=== PATIENT | female | born 1955 | race American Indian/Alaskan Native ===

== ENCOUNTER 2020-03-10 11:29 | Observation (INO) | payer MEDICARE, OTHER ==
--- NOTE | 2020-03-10 13:20 | Cat Scan Report ---
CT head/brain wo con INDICATION: dizziness, elevated BP. TECHNIQUE: Routine CT head without contrast. All CT scans at this location are performed using CT dos e reduction for ALARA by means of automated exposure control. COMPARISON: None. FINDINGS: BRAIN / INTRACRANIAL CONTENTS: No acute hemorrhage, mass effect, midline shift, or hydrocephalus. No appreciable acute large territorial or lacunar infarct. No chronic infarct or focal atrophy. Normal b rain volume and ventricular/sulcal size for age. ORBITS: No significant abnormality of visualized orbits. SINUSES / MASTOIDS: No significant abnormality of visualized sinuses and mastoid air cells. ADDITIONAL FINDINGS: None. IMPRESSION: 1. No acute intracranial abnormality. Signer Name: Raghu Becker MD Signed: 03/10/2020 1:15 PM Workstation Name: [id number]
[2020-03-10 14:00] LABS: Basophils % (Auto) 0.2 % (0.0-1.8); Eosinophils % (Auto) 0.4 % (0.0-4.3); Hematocrit 38.9 % (30.3-42.9); Hemoglobin 12.6 gm/dl (10.1-14.3); Lymphocytes # (Auto) 0.9 K/mm3 (1.2-5.4); Lymphocytes % (Auto) 16.2 % (13.4-35.0); Mean Corpuscular HGB Conc 32 % (30-34); Mean Corpuscular Volume 82 fl (79-97); Monocytes # (Auto) 0.4 K/mm3 (0.0-0.8); Platelet Count 234 K/mm3 (140-440); Red Blood Count 4.77 M/mm3 (3.65-5.03); Red Cell Distribution Width 15.9 % (13.2-15.2)
--- NOTE | 2020-03-10 14:24 | Event Note ---
ED Screening Note ED Screening Note: dizziness that began this morning at 10 AM states she went to the bathroom at 9 AM and had no dizziness states feel like room is spinning states she feels generalized weakness states her dizziness is improving worse with head movements no ANGEL vision feels blurry, but hx of cataract surgery so chronically has blurred vision states she also has nausea and one episode of vomiting no unilateral weakness no speech disturbance PMHx HTN, asthma no allergies to meds no facial asymmetry, 5/5 muscle strength in the BUE/BLE, equal nondestructive tester strength, normal finger to nose, normal heel to shultz, sensation intact throughout discussed case with Dr. Garcia, ER attending does not recommend activating code s troke at this time This initial assessment/diagnostic orders/clinical plan/treatment(s) is/are subject to change based on patients health status, clinical progression and re- assessment by fellow clinical providers in the ED. Further treatment and workup at subsequent clinical providers discretion. Patient/guardian urged not to elope from the ED as their condition may be serious if not clinically assessed and managed. Initial orders include: labs, EKG, CT head
[2020-03-10 14:29] LABS: Alanine Aminotransferase 19 units/L (7-56); Albumin 3.7 g/dL (3.9-5); Blood Urea Nitrogen 12 mg/dL (7-17); Calcium 9.4 mg/dL (8.4-10.2); Hemolysis Index 1
[2020-03-10 14:33] LABS: BUN/Creatinine Ratio 20
--- NOTE | 2020-03-10 15:06 | Emergency Department Report ---
HPI - General Chief Complaint: Dizziness Time Seen by Provider: 03/10/20 14:13 - HPI HPI: This is a 64-year-old -[place] female who presents to the emergency department from home with complaint of dizziness, generalized weakness and blurry vision that started around 10 AM this morning. It is also associated with some nausea and vomiting. The patient denies any headache, fever, chest pain, shortness of breath. She has not taken anything for her symptoms prior to presentation. She has a past medical history of hypertension. Her primary care physician is Dr. Dawson Mcfadden. The patient denies any slurred speech, numbness or paresthesias. No recent travel or sick contacts at home. 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.,3 C-sections - Social History Smoking Status: Never Smoker Substance Use Type: None - Medications Home Medications: Home Medications Medication Instructions Recorded Confirmed Last Taken Type Azithromycin [Zithromax Z-SARAH] 250 mg PO DAILY #6 tablet 02/03/14 Unknown Rx Promethazine /Codeine 5 ml PO Q6H PRN #120 ml 02/03/14 Unknown Rx [Phenergan/Codeine 6.25-10 mg/5 ml] guaiFENesin/DEXTROMETHORPHAN 1 each PO BID #20 tab 02/03/14 Unknown Rx [Mucinex Dm ER 1,200-60 mg Tab] predniSONE [Deltasone] 40 mg PO QDAY #10 tab 02/03/14 Unknown Rx traMADoL [Ultram] 50 mg PO Q6HR PRN #14 tablet 11/21/15 Unknown Rx ED Review of Systems ROS: Stated complaint: DIZZY Other details as noted in HPI Comment: All other systems reviewed and negative Constitutional: weakness. denies: chills, fever Eyes: vision change. denies: eye pain ENT: denies: ear pain, throat pain Respiratory: denies: cough, shortness of breath Cardiovascular: denies: chest pain, palpitations Gastrointestinal: denies: abdominal pain, vomiting Genitourinary: denies: dysuria, discharge Musculoskeletal: denies: back pain, arthralgia Skin: denies: rash, lesions Neurological: weakness. denies: headache, numbness Physical Exam - Physical Exam Vital Signs: Vital Signs 03/10/20 11:33 Temperature 97.9 F Pulse Rate 55 L Respiratory 18 Rate Blood Pressure 187/87 O2 Sat by Pulse 97 Oximetry Physical Exam: GENERAL: The patient is well-developed well-nourished. HENT: Normocephalic. Atraumatic. Patient has moist mucous membranes. EYES: Patient has anisocoria with the right pupil 2 times larger than the left with some slight decreased response to light. There is significant horizontal nystagmus. The patient has some mild rotary nystagmus when looking up/down. NECK: Supple. Trachea is midline. CHEST/LUNGS: Clear to auscultation. There is no respiratory distress noted. HEART/CARDIOVASCULAR: Regular. There is no tachycardia. There is no murmur. ABDOMEN: Abdomen is soft, nontender. Patient has normal bowel sounds. Obese habitus. SKIN: Skin is warm and dry. NEURO: The patient is awake, alert, and oriented. The patient is cooperative. No motor or sensory deficits. No slurred speech. No facial asymmetry. MUSCULOSKELETAL: There is no tenderness or deformity. There is no limitation range of motion. ED Course Vital Signs 03/10/20 11:33 Temperature 97.9 F Pulse Rate 55 L Respiratory 18 Rate Blood Pressure 187/87 O2 Sat by Pulse 97 Oximetry - Reevaluation(s) Reevaluation #1: 03/10/20 17:50 Lab Results 03/10/20 03/10/20 03/10/20 Range/Units 13:10 13:10 15:20 WBC 5.9 (4.5-11.0) K/mm3 RBC 4.77 (3.65-5.03) M/mm3 Hgb 12.6 (10.1-14.3) gm/dl Hct 38.9 (30.3-42.9) % MCV 82 (79-97) fl MCH 26 L (28-32) pg MCHC 32 (30-34) % RDW 15.9 H (13.2-15.2) % Plt Count 234 (140-440) K/mm3 Lymph % (Auto) 16.2 (13.4-35.0) % Millard % (Auto) 6.0 (0.0-7.3) % Eos % (Auto) 0.4 (0.0-4.3) % Baso % (Auto) 0.2 (0.0-1.8) % Lymph # (Auto) 0.9 L (1.2-5.4) K/mm3 Millard # (Auto) 0.4 (0.0-0.8) K/mm3 Eos # (Auto) 0.0 (0.0-0.4) K/mm3 Baso # (Auto) 0.0 (0.0-0.1) K/mm3 Seg Neutrophils % 77.2 H (40.0-70.0) % Seg Neutrophils # 4.5 (1.8-7.7) K/mm3 Sodium 141 (137-145) mmol/L Potassium 4.0 (3.6-5.0) mmol/L Chloride 105.9 (98-107) mmol/L Carbon Dioxide 27 (22-30) mmol/L Anion Gap 12 mmol/L BUN 12 (7-17) mg/dL Creatinine 0.6 (0.6-1.2) mg/dL Estimated GFR > 60 ml/min BUN/Creatinine Ratio 20 % Glucose 128 H (65-100) mg/dL Calcium 9.4 (8.4-10.2) mg/dL Magnesium 2.10 (1.7-2.3) mg/dL Total Bilirubin 0.20 (0.1-1.2) mg/dL AST 20 (5-40) units/L ALT 19 (7-56) units/L Alkaline Phosphatase 97 (35-129) units/L Total Creatine Kinase 34 (30-135) units/L Troponin T (0.00-0.029) ng/mL Total Protein 7.6 (6.3-8.2) g/dL Albumin 3.7 L (3.9-5) g/dL Albumin/Globulin Ratio 0.9 % TSH 1.190 (0.270-4.200) mlU/mL 12/16/20 Range/Units 15:20 WBC (4.5-11.0) K/mm3 RBC (3.65-5.03) M/mm3 Hgb (10.1-14.3) gm/dl Hct (30.3-42.9) % MCV (79-97) fl MCH (28-32) pg MCHC (30-34) % RDW (13.2-15.2) % Plt Count (140-440) K/mm3 Lymph % (Auto) (13.4-35.0) % Millard % (Auto) (0.0-7.3) % Eos % (Auto) (0.0-4.3) % Baso % (Auto) (0.0-1.8) % Lymph # (Auto) (1.2-5.4) K/mm3 Millard # (Auto) (0.0-0.8) K/mm3 Eos # (Auto) (0.0-0.4) K/mm3 Baso # (Auto) (0.0-0.1) K/mm3 Seg Neutrophils % (40.0-70.0) % Seg Neutrophils # (1.8-7.7) K/mm3 Sodium (137-145) mmol/L Potassium (3.6-5.0) mmol/L Chloride (98-107) mmol/L Carbon Dioxide (22-30) mmol/L Anion Gap mmol/L BUN (7-17) mg/dL Creatinine (0.6-1.2) mg/dL Estimated GFR ml/min BUN/Creatinine Ratio % Glucose (65-100) mg/dL Calcium (8.4-10.2) mg/dL Magnesium (1.7-2.3) mg/dL Total Bilirubin (0.1-1.2) mg/dL AST (5-40) units/L ALT (7-56) units/L Alkaline Phosphatase (35-129) units/L Total Creatine Kinase (30-135) units/L Troponin T < 0.010 (0.00-0.029) ng/mL Total Protein (6.3-8.2) g/dL Albumin (3.9-5) g/dL Albumin/Globulin Ratio % TSH (0.270-4.200) mlU/mL ED Medical Decision Making - Lab Data Result diagrams: 03/10/20 13:10 03/10/20 13:10 - Radiology Data Radiology results: report reviewed CT head/brain wo con INDICATION: dizziness, elevated BP. TECHNIQUE: Routine CT head without contrast. All CT scans at this location are performed using CT dose reduction for ALARA by means of automated exposure control. COMPARISON: None. FINDINGS: BRAIN / INTRACRANIAL CONTENTS: No acute hemorrhage, mass effect, m idline shift, or hydrocephalus. No appreciable acute large territorial or lacunar infarct. No chronic infarct or focal atrophy. Normal brain volume and ventricular/sulcal size for age. ORBITS: No significant abnormality of visualized orbits. SINUSES / MASTOIDS: No significant abnormality of visualized sinuses and mastoid air cells. ADDITIONAL FINDINGS: None. IMPRESSION: 1. No acute intracranial abnormality. CTA HEAD AND NECK WITH CONTRAST HISTORY: Stroke, acute vertigo COMPARISON: Head CT done earlier on 03/10/2020 TECHNIQUE: All CT scans at this location are performed using CT dose reduction for ALARA by means of automated exposure control.. 3-D/MIP reformats postprocessed. Percentage stenosis is determined by direct quantitative measurements of diseased internal carotid artery diameter compared with normal distal internal carotid artery reference segments or by criteria similar to NASCET where applicable. CONTRAST: 100 ml of Omnipaque 350 FINDINGS: CTA HEAD: Intracranial vertebral arteries: No significant abnormality. Basilar artery: No significant abnormality. Posterior cerebral arteries: No significant abnormality. Intracranial internal carotid arteries: There is mild atherosclerotic calcification in both carotid siphons without significant s tenosis. Anterior cerebral arteries: No significant abnormality. Middle cerebral arteries: No significant abnormality. Dural venous sinuses:Not optimally opacified. No significant abnormality. CTA NECK: Aortic arch: No significant abnormality. Cervical vertebral arteries: No significant abnormality. Common carotid arteries: No significant abnormality. Cervical internal carotid arteries: No significant abnormality. Additional findings: None. IMPRESSION: 1. No significant stenosis, large vessel occlusion, or aneurysm identified throughout the cervical or intracranial arteries. - Medical Decision Making This patient presents to the emergency department with a complaint of some blurry vision, dizziness/lightheadedness and generalized weakness that started about 10 AM this morning. Patient had a CT scan of the head without contrast through triage that did not show any acute bleed or large territorial infarction. By the time this patient was triaged and was presented to me, she was outside the window for any TPA. During my examination the patient has significant horizontal nystagmus, some mild rotary nystagmus, and the complaint of decreased and blurry vision. After my examination, I contacted telemetry neurology for a consult. Patient was seen by Dr. Mac, who got a NIH stroke scale of 2 on the patient and felt there was concern for possible posterior circulation infarction. She ordered CT angiography of the head and neck. This was completed but did not show any sign of any acute occlusion, thrombus, or any other acute processes. The recommendation is for the patient receive a full dose aspirin and to be admitted for inpatient neurology consult and further stroke work-up. Patient's labs have been mostly unremarkable. She does present with some hypertension and was given a dose of Catapres. Afebrile. Patient was accepted for admission by the hospitalist, Dr. Trejo. Critical Care Time: Yes Critical care time in (mins) excluding proc time.: 35 Critical care attestation.: If time is entered above; I have spent that time in minutes in the direct care of this critically ill patient, excluding procedure time. Critical care time was spent on this patient in doing her initial evaluation, multiple reevaluations, ordering and interpretation of labs and imaging, discussion with the telemedicine neurologist and hospitalist services, multiple discussions with the patient. Critical Care Time: 35 minutes ED Disposition Clinical Impression: Stroke (cerebrum) Qualifiers: CVA mechanism: unspecified Qualified Code(s): I63.9 - Cerebral infarction, unspecified Hypertension Qualifiers: Hypertension type: essential hypertension Qualified Code(s): I10 - Essential (primary) hypertension Disposition: -09 OP ADMIT IP TO THIS HOSP Is pt being admited?: Yes Condition: Serious Time of Disposition: 17:00
[2020-03-10] MEDS ORDERED: ONDANSETRON 4 MG/2 ML INJ IV ONE (15:07)
[2020-03-10] MEDS ORDERED: cloNIDine 0.1 MG TAB PO ONE (15:09)
--- NOTE | 2020-03-10 16:01 | Emergency Department Report ---
ED Neuro Deficit HPI - General Chief Complaint: Dizziness Stated Complaint: DIZZY Time Seen by Provider: 03/10/20 14:13 Source: patient Mode of arrival: Ambulatory Limitations: No Limitations - History of Present Illness Initial Comments: [facility] Tele[facility]urology Consult Services Stat Consult Date of Service: 03/10/2020 15:25:20 Impression: I63.9 - Cerebrovascular accident (CVA), unspecified mechanism (HCC) I63.0 - Cerebral infarction due to thrombosis of precerebral arteries Comments/Sign-Out: the patient has a limitation of her right vision but she says this is chronic and not new and she also has vertigo and some extraocular motility abnormality. 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 she will need inpatient neurology consultation stroke workup.with start her on aspirin full strength. Allow permissive hypertension per non-TPA stroke protocol. 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 Recommendations: Initiate Aspirin 325 MG Daily Imaging Studies: MRI Head MRA Head Without Contrast Carotid Dopplers Echocardiogram - Transthoracic Echocardiogram Therapies: Physical Therapy, Occupational Therapy, Speech Therapy Assessment When Applicable Disposition: Neurology Follow Up Recommended Sign Out: Discussed with Emergency Department Provider Chief Complaint: blurry vision History of Present Illness: Patient is a 64 year old Female. the patient is a very [id number] woman with a history of hypertension and sinus issues woke up today at 9 AM and felt okay she then went back to bed at 10 AM and woke up at 11 very dizzy which was a sense of motion. She denies any other new weakness numbness or tingling. No history of stroke that she is aware of. She does not take any routine blood thinners. She did have some nausea and vomiting 2 earlier but no headache or chest pain. She had she came to the emergency department with a complaint of blurry vision and dizziness. her blood pressure is significantly elevated in the 180s systolic range. Past Medical History: Hypertension There is NO history of Diabetes Mellitus There is NO history of Atrial Fibrillation There is NO history of Coronary Artery Disease There is NO history of Stroke Anticoagulant use: No Antiplatelet use: No Examination: BP(187/87), Pulse(53), Blood Glucose(128) 1A: Level of Consciousness - Alert; keenly responsive + 0 1B: Ask Month and Age - Both Questions Right + 0 1C: Blink Eyes & Squeeze Hands - Performs Both Tasks + 0 2: Test Horizontal Extraocular Movements - Partial Gaze Palsy: Can Be Overcome + 1 3: Test Visual [place] - Partial Hemianopia + 1 4: Test Facial Palsy (Use Grimace if Obtunded) - Normal symmetry + 0 5A: Test Left Arm Motor Drift - No Drift for 10 Seconds + 0 5B: Test Right Arm Motor Drift - No Drift for 10 Seconds + 0 6A: Test Left Leg Motor Drift - No Drift for 5 Seconds + 0 6B: Test Right Leg Motor Drift - No Drift for 5 Seconds + 0 7: Test Limb Ataxia (FNF/Heel-[place]) - No Ataxia + 0 8: Test Sensation - Normal; No sensory loss + 0 9: Test Language/Aphasia - Normal; No aphasia + 0 10: Test Dysarthria - Normal + 0 11: Test Extinction/Inattention - No abnormality + 0 NIHSS Score: 2 Patient/Family was informed the Neurology Consult would happen via Tele[facility] consult by way of interactive audio and video telecommunications and consented to receiving care in this manner. Due to the immediate potential for life-threatening deterioration due to underlying acute neurologic illness, I spent 35 minutes providing critical care. This time includes time for face to face visit via telemedicine, review of medical records, imaging studies and discussion of findings with providers, the patient and/or family. Dr Margie Mac [facility] Case [id number] - Related Data Home Medications: Previous Rx's Medication Instructions Recorded Last Taken Type Azithromycin [Zithromax Z-SARAH] 250 mg PO DAILY #6 tablet 02/03/14 Unknown Rx Promethazine /Codeine 5 ml PO Q6H PRN #120 ml 02/03/14 Unknown Rx [Phenergan/Codeine 6.25-10 mg/5 ml] guaiFENesin/DEXTROMETHORPHAN 1 each PO BID #20 tab 02/03/14 Unknown Rx [Mucinex Dm ER 1,200-60 mg Tab] predniSONE [Deltasone] 40 mg PO QDAY #10 tab 02/03/14 Unknown Rx traMADoL [Ultram] 50 mg PO Q6HR PRN #14 tablet 11/21/15 Unknown Rx Allergies/Adverse Reactions: Allergies Allergy/AdvReac Type Severity Reaction Status Date / Time No Known Allergies Allergy Verified 02/03/14 13:34 ED Review of Systems ROS: Stated complaint: DIZZY Other details as noted in HPI Constitutional: weakness. denies: chills, fever Eyes: vision change. denies: eye pain ENT: denies: ear pain, throat pain Respiratory: denies: cough, shortness of breath Cardiovascular: denies: chest pain, palpitations Gastrointestinal: denies: abdominal pain, vomiting Genitourinary: denies: dysuria, discharge Musculoskeletal: denies: back pain, arthralgia Skin: denies: rash, lesions Neurological: weakness. 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.,3 C-sections - Social History Smoking Status: Never Smoker Substance Use Type: None - Medications Home Medications: Home Medications Medication Instructions Recorded Confirmed Last Taken Type Azithromycin [Zithromax Z-SARAH] 250 mg PO DAILY #6 tablet 02/03/14 Unknown Rx Promethazine /Codeine 5 ml PO Q6H PRN #120 ml 02/03/14 Unknown Rx [Phenergan/Codeine 6.25-10 mg/5 ml] guaiFENesin/DEXTROMETHORPHAN 1 each PO BID #20 tab 02/03/14 Unknown Rx [Mucinex Dm ER 1,200-60 mg Tab] predniSONE [Deltasone] 40 mg PO QDAY #10 tab 02/03/14 Unknown Rx traMADoL [Ultram] 50 mg PO Q6HR PRN #14 tablet 11/21/15 Unknown Rx ED Neuro Physical Exam - General Limitations: No Limitations Suspected Stroke: Yes - NIHSS Assessment Interval: Baseline 1a. Level of Consciousness: alert/keenly responsive 1b. LOC Questions: answers both correctly 1c. LOC Commands: performs tasks correctly 2. Best Gaze: partial gaze palsy 3. Visual: complete hemianopia 4. Facial Palsy: normal symmetrical movement 5b. Motor Arm Right: no drift 5a. Motor Arm Left: no drift 6a. Motor Leg Left: no drift 6b. Motor Leg Right: no drift 7. Limb Ataxia: absent 8. Sensory: normal 9. Best Language: no aphasia 10. Dysarthria: normal 11. Extinction/Inattention: no abnormality (will) Total Score: 3 Stroke Severity: Minor Stroke ED Course Vital Signs 03/10/20 03/10/20 11:33 15:26 Temperature 97.9 F Pulse Rate 55 L 53 L Respiratory 18 Rate Blood Pressure 187/87 185/75 O2 Sat by Pulse 97 Oximetry - Lab Data Result diagrams: 03/10/20 13:10 03/10/20 13:10 Lab Results 03/10/20 03/10/20 Range/Units 13:10 13:10 WBC 5.9 (4.5-11.0) K/mm3 RBC 4.77 (3.65-5.03) M/mm3 Hgb 12.6 (10.1-14.3) gm/dl Hct 38.9 (30.3-42.9) % MCV 82 (79-97) fl MCH 26 L (28-32) pg MCHC 32 (30-34) % RDW 15.9 H (13.2-15.2) % Plt Count 234 (140-440) K/mm3 Lymph % (Auto) 16.2 (13.4-35.0) % [place] % (Auto) 6.0 (0.0-7.3) % Eos % (Auto) 0.4 (0.0-4.3) % Baso % (Auto) 0.2 (0.0-1.8) % Lymph # (Auto) 0.9 L (1.2-5.4) K/mm3 [place] # (Auto) 0.4 (0.0-0.8) K/mm3 Eos # (Auto) 0.0 (0.0-0.4) K/mm3 Baso # (Auto) 0.0 (0.0-0.1) K/mm3 Seg Neutrophils % 77.2 H (40.0-70.0) % Seg Neutrophils # 4.5 (1.8-7.7) K/mm3 Sodium 141 (137-145) mmol/L Potassium 4.0 (3.6-5.0) mmol/L Chloride 105.9 (98-107) mmol/L Carbon Dioxide 27 (22-30) mmol/L Anion Gap 12 mmol/L BUN 12 (7-17) mg/dL Creatinine 0.6 (0.6-1.2) mg/dL Estimated GFR > 60 ml/min BUN/Creatinine Ratio 20 % Glucose 128 H (65-100) mg/dL Calcium 9.4 (8.4-10.2) mg/dL Magnesium 2.10 (1.7-2.3) mg/dL Total Bilirubin 0.20 (0.1-1.2) mg/dL AST 20 (5-40) units/L ALT 19 (7-56) units/L Alkaline Phosphatase 97 (35-129) units/L Total Creatine Kinase 34 (30-135) units/L Total Protein 7.6 (6.3-8.2) g/dL Albumin 3.7 L (3.9-5) g/dL Albumin/Globulin Ratio 0.9 % Critical care attestation.: If time is entered above; I have spent that time in minutes in the direct care of this critically ill patient, excluding procedure time. ED Disposition Clinical Impression: Stroke (cerebrum) Qualifiers: CVA mechanism: unspecified Qualified Code(s): I63.9 - Cerebral infarction, unspecified Disposition: 09 OP ADMIT IP TO THIS HOSP Is pt being admited?: Yes Does the pt Need Aspirin: Yes Condition: Stable Referrals: SHILA COELHO MD [Primary Care Provider] - 3-5 Days
--- NOTE | 2020-03-10 16:55 | Cat Scan Report ---
CTA HEAD AND NECK WITH CONTRAST HISTORY: Stroke, acute vertigo COMPARISON: Head CT done earlier on 03/10/2020 TECHNIQUE: All CT scans at this location are performed using CT dose reduction for ALARA by means of automated exposure control.. 3-D/MIP reformats postprocessed. Percentage stenosis is determined by d irect quantitative measurements of diseased internal carotid artery diameter compared with normal dis bhanu internal carotid artery reference segments or by criteria similar to NASCET where applicable. CONTRAST: 100 ml of Omnipaque 350 FINDINGS: CTA HEAD: Intracranial vertebral arteries: No significant abnormality. Basilar artery: No significant abnormality. Posterior cerebral arteries: No significant abnormality. Intracranial internal carotid arteries: There is mild atherosclerotic calcification in both carotid s iphons without significant stenosis. Anterior cerebral arteries: No significant abnormality. Middle cerebral arteries: No significant abnormality. Dural venous sinuses:Not optimally opacified. No significant abnormality. CTA NECK: Aortic arch: No significant abnormality. Cervical vertebral arteries: No significant abnormality. Common carotid arteries: No significant abnormality. Cervical internal carotid arteries: No significant abnormality. Additional findings: None. IMPRESSION: 1. No significant stenosis, large vessel occlusion, or aneurysm identified throughout the cervical or intracranial arteries. Signer Name: Raghu Bceker MD Signed: 03/10/2020 4:51 PM Workstation Name: [id number]
[2020-03-10] MEDS ORDERED: ASPIRIN 81 MG TAB CHEW PO ONE (16:59)
[2020-03-10 18:04] LABS: Bacteria,Urine 1+ /HPF (Negative); Bilirubin,Urine NEG (Negative); Blood,Urine NEG (Negative); Color,Urine Yellow (Yellow); Mucus,Urine FEW /HPF; Urobilinogen,Urine < 2.0 mg/dL (<2.0)
[2020-03-11] MEDS ORDERED: traMADol 50 MG TAB PO PRN (00:27)
[2020-03-11] MEDS ORDERED: HYDROmorphone 1 MG/1 ML INJ IV PRN (00:32)
[2020-03-11] MEDS ORDERED: METOCLOPRAMIDE 10 MG/2 ML INJ IV PRN (00:32)
[2020-03-11] MEDS ORDERED: ONDANSETRON 4 MG/2 ML INJ IV PRN (00:32)
[2020-03-11] MEDS ORDERED: oxyCODONE /ACETAMINOPHEN 5-325MG TAB PO PRN (00:32)
--- NOTE | 2020-03-11 00:40 | History and Physical Report ---
History of Present Illness Date of examination: 03/10/20 Date of admission: 03/10/20 17:00 Chief complaint: Dizziness blurred vision since a.m. History of present illness: 64-year-old female with history of hypertension comes in for dizziness generalized weakness and blurry vision that started around 10 AM this morning. Also associated with nausea and vomiting. Patient denies any headache fever chest pain shortness of breath. Patient denies any slurred speech or numbness or paresthesias. No fever. No recent exposure to coronavirus. No history of stroke that she is aware of. She does not take any routine blood thinners. She did have some nausea and vomiting 2 earlier but no headache or chest pain. She had she came to the emergency department with a complaint of blurry vision and dizziness. her blood pressure is significantly elevated in the 180s systolic range. 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.,3 C-sections - Social History Smoking Status: Never Smoker Substance Use Type: None - Medications Home Medications: Home Medications Medication Instructions Recorded Confirmed Last Taken Type Azithromycin [Zithromax Z-SARAH] 250 mg PO DAILY #6 tablet 02/03/14 Unknown Rx Promethazine /Codeine 5 ml PO Q6H PRN #120 ml 02/03/14 Unknown Rx [Phenergan/Codeine 6.25-10 mg/5 ml] guaiFENesin/DEXTROMETHORPHAN 1 each PO BID #20 tab 02/03/14 Unknown Rx [Mucinex Dm ER 1,200-60 mg Tab] predniSONE [Deltasone] 40 mg PO QDAY #10 tab 02/03/14 Unknown Rx traMADoL [Ultram] 50 mg PO Q6HR PRN #14 tablet 11/21/15 Unknown Rx Review of Systems ROS: Stated complaint: DIZZY Other details as noted in HPI Comment: All other systems reviewed and negative Constitutional: weakness. denies: chills, fever Eyes: vision change. denies: eye pain ENT: denies: ear pain, throat pain Respiratory: denies: cough, shortness of breath Cardiovascular: denies: chest pain, palpitations Gastrointestinal: denies: abdominal pain, vomiting Genitourinary: denies: dysuria, discharge Musculoskeletal: denies: back pain, arthralgia Skin: denies: rash, lesions Neurological: weakness. denies: headache, numbness Medications and Allergies Allergies Allergy/AdvReac Type Severity Reaction Status Date / Time No Known Allergies Allergy Verified 02/03/14 13:34 Home Medications Medication Instructions Recorded Confirmed Last Taken Type Azithromycin [Zithromax Z-SARAH] 250 mg PO DAILY #6 tablet 02/03/14 Unknown Rx Promethazine /Codeine 5 ml PO Q6H PRN #120 ml 02/03/14 Unknown Rx [Phenergan/Codeine 6.25-10 mg/5 ml] guaiFENesin/DEXTROMETHORPHAN 1 each PO BID #20 tab 02/03/14 Unknown Rx [Mucinex Dm ER 1,200-60 mg Tab] predniSONE [Deltasone] 40 mg PO QDAY #10 tab 02/03/14 Unknown Rx traMADoL [Ultram] 50 mg PO Q6HR PRN #14 tablet 11/21/15 Unknown Rx Exam - Constitutional Vitals: Temp Pulse Resp BP Pulse Ox 97.9 F 78 16 192/97 96 03/11/20 00:19 03/11/20 00:19 03/11/20 00:19 03/11/20 00:19 03/11/20 00:19 General appearance: Present: no acute distress, well-nourished - EENT Eyes: Present: PERRL ENT: hearing intact, clear oral mucosa - Neck Neck: Present: supple, normal ROM - Respiratory Respiratory effort: normal Respiratory: bilateral: CTA - Cardiovascular Heart Sounds: Present: S1 & S2. Absent: rub, click - Extremities Extremities: pulses symmetrical, No edema Peripheral Pulses: within normal limits - Abdominal General gastrointestinal: Present: soft, non-tender, non-distended, normal bowel sounds Female genitourinary: Present: normal - Integumentary Integumentary: Present: clear, warm, dry - Musculoskeletal Musculoskeletal: gait normal, strength equal bilaterally - Psychiatric Psychiatric: appropriate mood/affect, intact judgment & insight - Neurologic Neurologic: CNII-XII intact, moves all extremities HEART Score - HEART Score Troponin: Troponin T < 0.010 ng/mL (0.00-0.029) 03/10/20 15:20 Results - Labs CBC & Chem 7: 03/10/20 13:10 03/10/20 13:10 Labs: Laboratory Last Values WBC 5.9 K/mm3 (4.5-11.0) 03/10/20 13:10 RBC 4.77 M/mm3 (3.65-5.03) 03/10/20 13:10 Hgb 12.6 gm/dl (10.1-14.3) 03/10/20 13:10 Hct 38.9 % (30.3-42.9) 03/10/20 13:10 MCV 82 fl (79-97) 03/10/20 13:10 MCH 26 pg (28-32) L 03/10/20 13:10 MCHC 32 % (30-34) 03/10/20 13:10 RDW 15.9 % (13.2-15.2) H 03/10/20 13:10 Plt Count 234 K/mm3 (140-440) 03/10/20 13:10 Lymph % (Auto) 16.2 % (13.4-35.0) 03/10/20 13:10 [place] % (Auto) 6.0 % (0.0-7.3) 03/10/20 13:10 Eos % (Auto) 0.4 % (0.0-4.3) 03/10/20 13:10 Baso % (Auto) 0.2 % (0.0-1.8) 03/10/20 13:10 Lymph # (Auto) 0.9 K/mm3 (1.2-5.4) L 03/10/20 13:10 [place] # (Auto) 0.4 K/mm3 (0.0-0.8) 03/10/20 13:10 Eos # (Auto) 0.0 K/mm3 (0.0-0.4) 03/10/20 13:10 Baso # (Auto) 0.0 K/mm3 (0.0-0.1) 03/10/20 13:10 Seg Neutrophils % 77.2 % (40.0-70.0) H 03/10/20 13:10 Seg Neutrophils # 4.5 K/mm3 (1.8-7.7) 03/10/20 13:10 Sodium 141 mmol/L (137-145) 03/10/20 13:10 Potassium 4.0 mmol/L (3.6-5.0) 03/10/20 13:10 Chloride 105.9 mmol/L (98-107) 03/10/20 13:10 Carbon Dioxide 27 mmol/L (22-30) 03/10/20 13:10 Anion Gap 12 mmol/L 03/10/20 13:10 BUN 12 mg/dL (7-17) 03/10/20 13:10 Creatinine 0.6 mg/dL (0.6-1.2) 03/10/20 13:10 Estimated GFR > 60 ml/min 03/10/20 13:10 BUN/Creatinine Ratio 20 % 03/10/20 13:10 Glucose 128 mg/dL (65-100) H 03/10/20 13:10 Calcium 9.4 mg/dL (8.4-10.2) 03/10/20 13:10 Magnesium 2.10 mg/dL (1.7-2.3) 03/10/20 13:10 Total Bilirubin 0.20 mg/dL (0.1-1.2) 03/10/20 13:10 AST 20 units/L (5-40) 03/10/20 13:10 ALT 19 units/L (7-56) 03/10/20 13:10 Alkaline Phosphatase 97 units/L (35-129) 03/10/20 13:10 Total Creatine Kinase 34 units/L (30-135) 03/10/20 13:10 Troponin T < 0.010 ng/mL (0.00-0.029) 03/10/20 15:20 Total Protein 7.6 g/dL (6.3-8.2) 03/10/20 13:10 Albumin 3.7 g/dL (3.9-5) L 03/10/20 13:10 Albumin/Globulin Ratio 0.9 % 03/10/20 13:10 TSH 1.190 mlU/mL (0.270-4.200) 03/10/20 15:20 Urine Color Yellow (Yellow) 03/10/20 Unknown Urine Turbidity Clear (Clear) 03/10/20 Unknown Urine pH 6.0 (5.0-7.0) 03/10/20 Unknown Ur Specific [place] 1.035 (1.003-1.030) H 03/10/20 Unknown Urine Protein 30 mg/dl mg/dL (Negative) 03/10/20 Unknown Urine Glucose (UA) Neg mg/dL (Negative) 03/10/20 Unknown Urine Ketones Neg mg/dL (Negative) 03/10/20 Unknown Urine Blood Neg (Negative) 03/10/20 Unknown Urine Nitrite Neg (Negative) 03/10/20 Unknown Urine Bilirubin Neg (Negative) 03/10/20 Unknown Urine Urobilinogen < 2.0 mg/dL (<2.0) 03/10/20 Unknown Ur Leukocyte Esterase Neg (Negative) 03/10/20 Unknown Urine WBC (Auto) 1.0 /HPF (0.0-6.0) 03/10/20 Unknown Urine RBC (Auto) 2.0 /HPF (0.0-6.0) 03/10/20 Unknown U Epithel Cells (Auto) 1.0 /HPF (0-13.0) 03/10/20 Unknown Urine Bacteria (Auto) 1+ /HPF (Negative) 03/10/20 Unknown Urine Mucus Few /HPF 03/10/20 Unknown Jones/IV: Voiding Method Toilet IV Catheter Type [Left INT / Saline Lock Antecubital] Assessment and Plan Advance Directives: Yes (FC) VTE prophylaxis?: Chemical Plan of care discussed with patient/family: Yes - Patient Problems (1) Acute CVA (cerebrovascular accident) Current Visit: Yes Status: Acute Plan to address problem: Complete CVA work-up MRI carotid duplex scan and echocardiogram requested MRA if necessary Plan pertelemetry neurology the patient has a limitation of her right vision but she says this is chronic and not new and she also has vertigo and some extraocular motility abnormality. 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 she will need inpatient neurology consultation stroke workup.with start her on aspirin full strength. Allow permissive hypertension per non-TPA stroke protocol. lower suspicion for large vessel occlusion given her low NIH, however we'll go ahead and get stat CT angiogram of the head and neck since she does have a homonymous field cut.which echo fasting lipid panel and hemoglobin A1c (2) Hypertension Current Visit: Yes Status: Chronic Qualifiers: Hypertension type: essential hypertension Qualified Code(s): I10 - Essential (primary) hypertension Plan to address problem: Continue antihypertensive (3) DVT prophylaxis Current Visit: Yes Status: Acute Plan to address problem: On heparin and GI prophylaxis
[2020-03-11] MEDS: ASPIRIN 325 MG TAB PO SCH (09:37)
[2020-03-11] MEDS: predniSONE 20 MG TAB PO SCH (09:37)
[2020-03-11] MEDS: HEPARIN 5,000 UNIT/1 ML VIAL SUB-Q SCH ×2 (09:37→23:03)
[2020-03-11] MEDS: SODIUM CHLORIDE 0.9% 1000 ML 1,000 ML IV SCH (09:37)
[2020-03-11] MEDS: FAMOTIDINE 20 MG TAB PO SCH ×2 (09:37→23:03)
--- NOTE | 2020-03-11 13:37 | History and Physical Report ---
History of Present Illness Date of admission: 03/10/20 17:00 Medications and Allergies Allergies Allergy/AdvReac Type Severity Reaction Status Date / Time No Known Allergies Allergy Verified 02/03/14 13:34 Home Medications Medication Instructions Recorded Confirmed Last Taken Type Metoprolol [Lopressor TAB] 100 mg PO BID 03/11/20 03/11/20 Unknown History Active Meds: Active Medications Acetaminophen (Acetaminophen 325 Mg Tab) 650 mg PO Q4H PRN PRN Reason: Pain MILD(1-3)/Fever >100.5/ANGEL Aspirin (Aspirin 325 Mg Tab) 325 mg PO QDAY [facility] Last Admin: 03/11/20 09:37 Dose: 325 mg Documented by: Atorvastatin Calcium (Atorvastatin 40 Mg Tab) 40 mg PO QHS [facility] Famotidine (Famotidine 20 Mg Tab) 20 mg PO BID [facility] Last Admin: 03/11/20 09:37 Dose: 20 mg Documented by: Heparin Sodium (Porcine) (Heparin 5,000 Unit/1 Ml Vial) 5,000 unit SUB-Q Q12HR [facility] Last Admin: 03/11/20 09:37 Dose: 5,000 unit Documented by: Hydromorphone HCl (Hydromorphone 1 Mg/1 Ml Inj) 0.5 mg IV Q3H PRN PRN Reason: Pain , Severe (7-10) Sodium Chloride (Nacl 0.9% 1000 Ml) 1,000 mls @ 75 mls/hr IV DIRECT [facility] Last Admin: 03/11/20 09:37 Dose: 75 mls/hr Documented by: Metoclopramide HCl (Metoclopramide 10 Mg/2 Ml Inj) 10 mg IV Q6H PRN PRN Reason: Nausea And Vomiting Ondansetron HCl (Ondansetron 4 Mg/2 Ml Inj) 4 mg IV Q8H PRN PRN Reason: Nausea And Vomiting Oxycodone/Acetaminophen (Oxycodone /Acetaminophen 5-325mg Tab) 1 tab PO Q6H PRN PRN Reason: Pain, Moderate (4-6) Prednisone (Prednisone 20 Mg Tab) 40 mg PO QDAY [facility] Last Admin: 03/11/20 09:37 Dose: 40 mg Documented by: Sodium Chloride (Sodium Chloride 0.9% 10 Ml Flush Syringe) 10 ml IV BID [facility] Last Admin: 03/11/20 09:37 Dose: 10 ml Documented by: Sodium Chloride (Sodium Chloride 0.9% 10 Ml Flush Syringe) 10 ml IV PRN PRN PRN Reason: LINE FLUSH Sodium Chloride (Sodium Chloride 0.9% 10 Ml Flush Syringe) 10 ml IV PRN PRN PRN Reason: LINE FLUSH Tramadol HCl (Tramadol 50 Mg Tab) 50 mg PO Q6H PRN PRN Reason: PAIN (1-4) Exam - Constitutional Vitals: Temp Pulse Resp BP Pulse Ox 97.9 F 85 18 161/70 97 03/11/20 07:51 03/11/20 07:51 03/11/20 07:51 03/11/20 07:51 03/11/20 07:51 HEART Score - HEART Score Troponin: Troponin T < 0.010 ng/mL (0.00-0.029) 03/10/20 15:20 Results - Labs CBC & Chem 7: 03/10/20 13:10 03/10/20 13:10 Labs: Abnormal lab results 03/10/20 03/10/20 03/10/20 Range/Units 13:10 13:10 Unknown MCH 26 L (28-32) pg RDW 15.9 H (13.2-15.2) % Lymph # (Auto) 0.9 L (1.2-5.4) K/mm3 Seg Neutrophils % 77.2 H (40.0-70.0) % Glucose 128 H (65-100) mg/dL Albumin 3.7 L (3.9-5) g/dL Ur Specific [place] 1.035 H (1.003-1.030)
--- NOTE | 2020-03-11 13:37 | Progress Note ---
Assessment and Plan Assessment and plan: 64-year-old female with history of hypertension comes in for dizziness generalized weakness and blurry vision that started around 10 AM this morning. Also associated with nausea and vomiting. Patient denies any headache fever chest pain shortness of breath. Patient denies any slurred speech or numbness or paresthesias. No fever. No recent exposure to coronavirus. No history of stroke that she is aware of. She does not take any routine blood thinners. She did have some nausea and vomiting 2 earlier but no headache or chest pain. She had she came to the emergency department with a complaint of blurry vision and dizziness. her blood pressure is significantly elevated in the 180s systolic range. In the ER, stroke code was called and patient was seen by neurologist who suggested an MRI of the brain. Patient's CT head was negative for any acute stroke. CTA head and neck also showed no significant stenosis. --Acute CVA (cerebrovascular accident) Current Visit: Yes Status: Acute Plan to address problem: MRI brain pending Echocardiogram with bubble study Neurology consulted --Hypertension Current Visit: Yes Status: Chronic Qualifiers: Hypertension type: essential hypertension Qualified Code(s): I10 - Essential (primary) hypertension Plan to address problem: Continue antihypertensives --DVT prophylaxis Current Visit: Yes Status: Acute Plan to address problem: On heparin and GI prophylaxis History Interval history: She has no complaints today Plan for MRI and echocardiogram Has slight dizziness Hospitalist Physical - Physical exam Narrative exam: VITAL SIGNS: Reviewed. GENERAL: Awake HEAD: No signs of head trauma. EYES: Pupils are equal. Extraocular motions intact. MOUTH: Oropharynx is normal. NECK: No adenopathy, no JVD. CHEST: Chest with diminished breath sounds bilaterally. No wheezes, rales, or rhonchi. CARDIAC: normal S1 and S2, without murmurs, gallops, or rubs. ABDOMEN: Soft, non tender and non distended. No rebound or guarding, and no masses palpated. Bowel Sounds normal. MUSCULOSKELETAL: No edema NEUROLOGIC EXAM: Alert and oriented x3. No focal neurologic deficits SKIN: No obvious lesions - Constitutional Vitals: Temp Pulse Resp BP Pulse Ox 97.9 F 85 18 161/70 97 03/11/20 07:51 03/11/20 07:51 03/11/20 07:51 03/11/20 07:51 03/11/20 07:51 HEART Score - HEART Score Troponin: Troponin T < 0.010 ng/mL (0.00-0.029) 03/10/20 15:20 Results - Labs CBC & Chem 7: 03/10/20 13:10 03/10/20 13:10 Labs: Laboratory Last Values WBC 5.9 K/mm3 (4.5-11.0) 03/10/20 13:10 RBC 4.77 M/mm3 (3.65-5.03) 03/10/20 13:10 Hgb 12.6 gm/dl (10.1-14.3) 03/10/20 13:10 Hct 38.9 % (30.3-42.9) 03/10/20 13:10 MCV 82 fl (79-97) 03/10/20 13:10 MCH 26 pg (28-32) L 03/10/20 13:10 MCHC 32 % (30-34) 03/10/20 13:10 RDW 15.9 % (13.2-15.2) H 03/10/20 13:10 Plt Count 234 K/mm3 (140-440) 03/10/20 13:10 Lymph % (Auto) 16.2 % (13.4-35.0) 03/10/20 13:10 [place] % (Auto) 6.0 % (0.0-7.3) 03/10/20 13:10 Eos % (Auto) 0.4 % (0.0-4.3) 03/10/20 13:10 Baso % (Auto) 0.2 % (0.0-1.8) 03/10/20 13:10 Lymph # (Auto) 0.9 K/mm3 (1.2-5.4) L 03/10/20 13:10 [place] # (Auto) 0.4 K/mm3 (0.0-0.8) 03/10/20 13:10 Eos # (Auto) 0.0 K/mm3 (0.0-0.4) 03/10/20 13:10 Baso # (Auto) 0.0 K/mm3 (0.0-0.1) 03/10/20 13:10 Seg Neutrophils % 77.2 % (40.0-70.0) H 03/10/20 13:10 Seg Neutrophils # 4.5 K/mm3 (1.8-7.7) 03/10/20 13:10 Sodium 141 mmol/L (137-145) 03/10/20 13:10 Potassium 4.0 mmol/L (3.6-5.0) 03/10/20 13:10 Chloride 105.9 mmol/L (98-107) 03/10/20 13:10 Carbon Dioxide 27 mmol/L (22-30) 03/10/20 13:10 Anion Gap 12 mmol/L 03/10/20 13:10 BUN 12 mg/dL (7-17) 03/10/20 13:10 Creatinine 0.6 mg/dL (0.6-1.2) 03/10/20 13:10 Estimated GFR > 60 ml/min 03/10/20 13:10 BUN/Creatinine Ratio 20 % 03/10/20 13:10 Glucose 128 mg/dL (65-100) H 03/10/20 13:10 Hemoglobin A1c 5.4 % (4-6) 03/11/20 Unknown Calcium 9.4 mg/dL (8.4-10.2) 03/10/20 13:10 Magnesium 2.10 mg/dL (1.7-2.3) 03/10/20 13:10 Total Bilirubin 0.20 mg/dL (0.1-1.2) 03/10/20 13:10 AST 20 units/L (5-40) 03/10/20 13:10 ALT 19 units/L (7-56) 03/10/20 13:10 Alkaline Phosphatase 97 units/L (35-129) 03/10/20 13:10 Total Creatine Kinase 34 units/L (30-135) 03/10/20 13:10 Troponin T < 0.010 ng/mL (0.00-0.029) 03/10/20 15:20 Total Protein 7.6 g/dL (6.3-8.2) 03/10/20 13:10 Albumin 3.7 g/dL (3.9-5) L 03/10/20 13:10 Albumin/Globulin Ratio 0.9 % 03/10/20 13:10 TSH 1.190 mlU/mL (0.270-4.200) 03/10/20 15:20 Urine Color Yellow (Yellow) 03/10/20 Unknown Urine Turbidity Clear (Clear) 03/10/20 Unknown Urine pH 6.0 (5.0-7.0) 03/10/20 Unknown Ur Specific [place] 1.035 (1.003-1.030) H 03/10/20 Unknown Urine Protein 30 mg/dl mg/dL (Negative) 03/10/20 Unknown Urine Glucose (UA) Neg mg/dL (Negative) 03/10/20 Unknown Urine Ketones Neg mg/dL (Negative) 03/10/20 Unknown Urine Blood Neg (Negative) 03/10/20 Unknown Urine Nitrite Neg (Negative) 03/10/20 Unknown Urine Bilirubin Neg (Negative) 03/10/20 Unknown Urine Urobilinogen < 2.0 mg/dL (<2.0) 03/10/20 Unknown Ur Leukocyte Esterase Neg (Negative) 03/10/20 Unknown Urine WBC (Auto) 1.0 /HPF (0.0-6.0) 03/10/20 Unknown Urine RBC (Auto) 2.0 /HPF (0.0-6.0) 03/10/20 Unknown U Epithel Cells (Auto) 1.0 /HPF (0-13.0) 03/10/20 Unknown Urine Bacteria (Auto) 1+ /HPF (Negative) 03/10/20 Unknown Urine Mucus Few /HPF 03/10/20 Unknown Jones/IV: Voiding Method Toilet IV Catheter Type [Left INT / Saline Lock Antecubital] Active Medications - Current Medications Current Medications: Generic Name Dose Route Start Last Admin Trade Name Freq PRN Reason Stop Dose Admin Acetaminophen 650 mg 03/11/20 00:32 Acetaminophen 325 Mg Tab PO Q4H PRN Pain MILD(1-3)/Fever >100.5/ANGEL Aspirin 325 mg 03/11/20 10:00 03/11/20 09:37 Aspirin 325 Mg Tab PO 325 mg QDAY TANNER Administration Atorvastatin Calcium 40 mg 03/11/20 22:00 Atorvastatin 40 Mg Tab PO QHS TANNER Famotidine 20 mg 03/11/20 10:00 03/11/20 09:37 Famotidine 20 Mg Tab PO 20 mg BID TANNER Administration Heparin Sodium (Porcine) 5,000 unit 03/11/20 10:00 03/11/20 09:37 Heparin 5,000 Unit/1 Ml Vial SUB-Q 5,000 unit Q12HR TANNER Administration Hydromorphone HCl 0.5 mg 03/11/20 00:32 Hydromorphone 1 Mg/1 Ml Inj IV Q3H PRN Pain , Severe (7-10) Sodium Chloride 1,000 mls @ 75 mls/hr 03/11/20 00:45 03/11/20 09:37 Nacl 0.9% 1000 Ml IV 75 mls/hr DIRECT TANNER Administration Metoclopramide HCl 10 mg 03/11/20 00:32 Metoclopramide 10 Mg/2 Ml Inj IV Q6H PRN Nausea And Vomiting Ondansetron HCl 4 mg 03/11/20 00:32 Ondansetron 4 Mg/2 Ml Inj IV Q8H PRN Nausea And Vomiting Oxycodone/Acetaminophen 1 tab 03/11/20 00:32 Oxycodone /Acetaminophen 5-325mg Tab PO Q6H PRN Pain, Moderate (4-6) Prednisone 40 mg 03/11/20 10:00 03/11/20 09:37 Prednisone 20 Mg Tab PO 40 mg QDAY TANNER Administration Sodium Chloride 10 ml 03/11/20 10:00 03/11/20 09:37 Sodium Chloride 0.9% 10 Ml Flush Syringe IV 10 ml BID TANNER Administration Sodium Chloride 10 ml 03/11/20 00:32 Sodium Chloride 0.9% 10 Ml Flush Syringe IV PRN PRN LINE FLUSH Sodium Chloride 10 ml 03/11/20 00:36 Sodium Chloride 0.9% 10 Ml Flush Syringe IV PRN PRN LINE FLUSH Tramadol HCl 50 mg 03/11/20 00:27 Tramadol 50 Mg Tab PO Q6H PRN PAIN (1-4)
--- NOTE | 2020-03-11 16:01 | Consultation ---
History of Present Illness Consult date: 03/11/20 Reason for Consult: dizziness, blurred vision, nausea and vomiting1 day History of present illness: This is a comprehensive neurological consultation on Mr. Jackelin Neil who is a very pleasant 64 years old woman presented with the symptoms of room spinning dizziness when she woke up this morning. She also had blurred vision, nausea and vomiting. She felt generalized weakness although denied any focal weakness. She had the CT scan of the brain done which was unremarkable. CT angiogram of head and neck are unremarkable. When she arrived her blood pressure was 192/97 mmHg. Presently she still feels blurred vision and room spinning dizziness up to 50%. She denied any focal weakness although. She just had an MRI of the brain done however the results are still pending. The images of MRI are not uploaded yet. Past History Past Medical History: hypertension Past Surgical History: No surgical history Social history: no significant social history Medications and Allergies Allergies Allergy/AdvReac Type Severity Reaction Status Date / Time No Known Allergies Allergy Verified 02/03/14 13:34 Home Medications Medication Instructions Recorded Confirmed Last Taken Type Metoprolol [Lopressor TAB] 100 mg PO BID 03/11/20 03/11/20 Unknown History Active Meds: Active Medications Acetaminophen (Acetaminophen 325 Mg Tab) 650 mg PO Q4H PRN PRN Reason: Pain MILD(1-3)/Fever >100.5/ANGEL Aspirin (Aspirin 325 Mg Tab) 325 mg PO QDAY [facility] Last Admin: 03/11/20 09:37 Dose: 325 mg Documented by: Atorvastatin Calcium (Atorvastatin 40 Mg Tab) 40 mg PO QHS [facility] Famotidine (Famotidine 20 Mg Tab) 20 mg PO BID [facility] Last Admin: 03/11/20 09:37 Dose: 20 mg Documented by: Heparin Sodium (Porcine) (Heparin 5,000 Unit/1 Ml Vial) 5,000 unit SUB-Q Q12HR [facility] Last Admin: 03/11/20 09:37 Dose: 5,000 unit Documented by: Hydromorphone HCl (Hydromorphone 1 Mg/1 Ml Inj) 0.5 mg IV Q3H PRN PRN Reason: Pain , Severe (7-10) Sodium Chloride (Nacl 0.9% 1000 Ml) 1,000 mls @ 75 mls/hr IV DIRECT [facility] Last Admin: 03/11/20 09:37 Dose: 75 mls/hr Documented by: Metoclopramide HCl (Metoclopramide 10 Mg/2 Ml Inj) 10 mg IV Q6H PRN PRN Reason: Nausea And Vomiting Ondansetron HCl (Ondansetron 4 Mg/2 Ml Inj) 4 mg IV Q8H PRN PRN Reason: Nausea And Vomiting Oxycodone/Acetaminophen (Oxycodone /Acetaminophen 5-325mg Tab) 1 tab PO Q6H PRN PRN Reason: Pain, Moderate (4-6) Prednisone (Prednisone 20 Mg Tab) 40 mg PO QDAY [facility] Last Admin: 03/11/20 09:37 Dose: 40 mg Documented by: Sodium Chloride (Sodium Chloride 0.9% 10 Ml Flush Syringe) 10 ml IV BID [facility] Last Admin: 03/11/20 09:37 Dose: 10 ml Documented by: Sodium Chloride (Sodium Chloride 0.9% 10 Ml Flush Syringe) 10 ml IV PRN PRN PRN Reason: LINE FLUSH Sodium Chloride (Sodium Chloride 0.9% 10 Ml Flush Syringe) 10 ml IV PRN PRN PRN Reason: LINE FLUSH Tramadol HCl (Tramadol 50 Mg Tab) 50 mg PO Q6H PRN PRN Reason: PAIN (1-4) Review of Systems All systems: negative (room spinning dizziness,and right eye blurred vision.) Physical Examination - Vital Signs Vital Signs: Vital Signs Temp Pulse Resp BP Pulse Ox 97.9 F 55 L 18 187/87 97 03/10/20 11:33 03/10/20 11:33 03/10/20 11:33 03/10/20 11:33 03/10/20 11:33 - Physical Exam Narrative exam: Comprehensive Neurological Examinations: Mental status: alert. Fund of knowledge-normal. Affect-appropriate. Recent memory-normal. Remote memory-normal. Attention span-normal. Cognitive function-normal. Thought content/perception-normal Speech-normal Cranial nerves: II Optic: Visual nmuyza-hsbiyqmdo-qcyhhd. Visual field-normal. III Oculomotor: Bilateral-normal IV Trochlear: Bilateral-normal V Trigeminal: Bilateral-normal. Abducens: Bilateral-normal VII Facial: Bilateral-normal VIII Acoustic: koshwocxi-drjghka-juytdj( tested by finger rub) IX Glossopharyngeal/ X Vagpz-btffh-nghfnr XI Accessory-normal shoulder shrug XII Uacyjygyyck-eunxipoto-seryot Eye movements: Tvzv-vjwcrgsiv-taexmt Nystagmus: right beating nystagmus Motor: Bulk and contour: Normal Tone: Normal Strength: Head and neck-normal Upper extremities: Right-no drift Left-no drift Lower extremities: Right-no drift Left-no drift DTRs: Deferred Plantar reflexes( Babinski)-bilateral-plantar flexion Sensory: Light touch/quasasmk-dcdzlf-phurbaxi Pain/qlvpumsqzjg-ayjoqb-houxzjks Coordination: No impairment Ftpp-wb-Kxke, no impairment of qylwpr-ry-thcf or no impairment of rapid alternating movements. Gait/Station: not tested due to safety of the patient - Constitutional General appearance: comfortable - EENT EENT: Present: ATNC, PERRL, hearing intact, vision intact - Respiratory Respiratory: Present: chest non-tender, lungs clear, normal breath sounds - Cardiovascular Cardiovascular: Present: regular rate Extremities: Present: no peripheral edema bilatateraly, no clubbing, cyanosis - Gastrointestinal Gastrointestinal: Present: normoactive bowel sounds, soft, non-tender - Integumentary Integumentary: Present: normal - Level of Consciousness 1a. Level of Consciousness: alert/keenly responsive - LOC Questions 1b. LOC Questions: answers both correctly - LOC Command 1c. LOC Commands: performs tasks correctly - Best Gaze 2. Best Gaze: normal - Visual 3. Visual: no visual loss - Facial Palsy 4. Facial Palsy: normal symmetrical movement - Motor Arm 5a. Motor Arm Left: no drift 5b. Motor Arm Right: no drift - Motor Leg 6a. Motor Leg Left: no drift 6b. Motor Leg Right: no drift - Limb Ataxia 7. Limb Ataxia: absent - Sensory 8. Sensory: normal - Best Language 9. Best Language: no aphasia - Dysarthria 10. Dysarthria: normal - Extinction and Inattention 11. Extinction/Inattention: no abnormality - Scoring Total Score: 0 Stroke Severity: No Stroke Symptoms Results - Laboratory Findings CBC and BMP: 03/10/20 13:10 03/10/20 13:10 Abnormal Lab Findings: Abnormal Labs 03/10/20 03/10/20 03/10/20 13:10 13:10 Unknown MCH 26 L RDW 15.9 H Lymph # (Auto) 0.9 L Seg Neutrophils % 77.2 H Glucose 128 H Albumin 3.7 L Ur Specific [place] 1.035 H - Diagnostic Findings Additional findings: MRI of the brain is still pending with the result. Assessment and Plan - Patient Problems (1) Acute peripheral vestibulopathy Current Visit: Yes Status: Acute Plan to address problem: Plan: 1) Although patient has classic room spinning dizziness and this could be from peripheral vestibulopathy however intracranial pathology like posterior fossa acute stroke needs to be ruled out. If her MRI of the brain is negative then consider prescribing her meclizine 6.25 mg 3 times a day for 3 weeks, twice a day for 2 weeks, once a day for 1 week and then stop it. (2) Stroke (cerebrum) Current Visit: Yes Status: Acute Qualifiers: CVA mechanism: thrombosis Precerebral and cerebral artery: cerebellar artery Laterality of affected vessel: unspecified Qualified Code(s): I63.349 - Cerebral infarction due to thrombosis of unspecified cerebellar artery Plan to address problem: Plan: 1) MRI of brain test result is still pending. If negative then consider this condition as acute peripheral vestibulopathy. The treatment for this condition is stated above. 2) If the MRI of the brain is positive for acute stroke then she needs aspirin, cholesterol lowering drug, and vascular risk reduction medications for hypertension and education for secondary prevention. I discussed at length with the patient regarding his condition and possible treatment options. I have answered multiple questions posed by the patient to her best satisfactions. Patient agreed with the plan. Thank you very much for allowing us in the care of your patient. Please call us if you have any questions. Yvette Sim MD Tele-neurologist [phone]
--- NOTE | 2020-03-11 18:03 | Magnetic Resonance Report ---
MR brain wo con INDICATION / CLINICAL INFORMATION: 64 years Female; stroke. TECHNIQUE: Multiplanar, multisequence MR images of the brain were obtained. COMPARISON: CT-03/10/2020 FINDINGS: BRAIN / INTRACRANIAL CONTENTS: No acute hemorrhage, mass effect, midline shift, hydrocephalus, or acu te, large territorial infarct. No chronic infarct or atrophy. Minimal, nonspecific white matter disea se identified. CRANIOCERVICAL JUNCTION: No significant abnormality. VASCULAR FLOW-VOIDS: No significant abnormality. ORBITS: No significant abnormality of visualized orbits. SINUSES / MASTOIDS: No significant abnormality in the visualized paranasal sinuses or mastoid air agatha ls. ADDITIONAL FINDINGS: None. IMPRESSION: 1. No focal mass, hemorrhage, hydrocephalus, or acute ischemia. Signer Name: Sean Piña MD, III Signed: 03/11/2020 5:59 PM Workstation Name: [email or web address]
--- NOTE | 2020-03-11 18:10 | Vascular Lab Report ---
DUPLEX DOPPLER ULTRASOUND CAROTID, BILATERAL INDICATION / CLINICAL INFORMATION: stroke. COMPARISON: CTA neck from 03/10/2020 FINDINGS: RIGHT CAROTID: - PLAQUE ESTIMATE (%): None. - CCA velocity: 87.9 cm/sec. - ICA peak systolic velocity: 92.6 cm/sec. - ICA/CCA PSV Ratio: 1.05 Right Vertebral Artery: Antegrade flow. LEFT CAROTID: - PLAQUE ESTIMATE: None. - CCA velocity: 75.2 cm/sec. - ICA peak systolic velocity: 95.8 cm/sec. - ICA/CCA PSV Ratio: 1.27 Left Vertebral Artery: Antegrade flow. IMPRESSION: 1. Right Internal Carotid Artery: Normal. No stenosis. 2. Left Internal Carotid Artery: Normal. No stenosis. Velocity criteria are extrapolated from diameter data as defined by the Society of Radiologists in Ul trasound Consensus Conference, Radiology 2003; 229;340-346. NO STENOSIS (NORMAL) * Plaque = none; ICA PSV < 125 cm/sec; ICA/CCA PSV Ratio < 2.0 <50% STENOSIS * Plaque < 50%; ICA PSV < 125 cm/sec; ICA/CCA PSV Ratio < 2.0 50-69% STENOSIS * Plaque > 50%; ICA PSV = 125-230 cm/sec; ICA/CCA PSV Ratio = 2.0-4.0 >70% BUT <100% STENOSIS * Plaque > 50%; ICA PSV > 230 cm/sec; ICA/CCA PSV Ratio > 4.0 NEAR OCCLUSION * Plaque = visible lumen; ICA PSV = high/low/none; ICA/CCA PSV Ratio = variable TOTAL OCCLUSION * Plaque = no lumen; ICA PSV = none; ICA/CCA PSV Ratio = N/A Signer Name: Bryn Goode MD Signed: 03/11/2020 6:05 PM Workstation Name: [id number]
[2020-03-11] MEDS: ACETAMINOPHEN 325 MG TAB PO PRN (19:54)
[2020-03-12] MEDS: SODIUM CHLORIDE 0.9% 1000 ML 1,000 ML IV SCH (00:40)
[2020-03-12 05:25] LABS: Basophils % (Auto) 0.3 % (0.0-1.8); Eosinophils % (Auto) 0.3 % (0.0-4.3); Hematocrit 34.9 % (30.3-42.9); Hemoglobin 11.5 gm/dl (10.1-14.3); Lymphocytes # (Auto) 1.5 K/mm3 (1.2-5.4); Lymphocytes % (Auto) 25.4 % (13.4-35.0); Mean Corpuscular HGB Conc 33 % (30-34); Mean Corpuscular Volume 82 fl (79-97); Monocytes # (Auto) 0.5 K/mm3 (0.0-0.8); Monocytes % (Auto) 8.1 % (0.0-7.3); Platelet Count 219 K/mm3 (140-440); Red Blood Count 4.23 M/mm3 (3.65-5.03); Red Cell Distribution Width 15.5 % (13.2-15.2)
[2020-03-12 08:43] LABS: Alanine Aminotransferase 23 units/L (7-56); Albumin 3.3 g/dL (3.9-5); Blood Urea Nitrogen 9 mg/dL (7-17); HDL Cholesterol 34 mg/dL (40-59); Hemolysis Index 6; LDL Cholesterol,Direct 96 mg/dL (50-130)
[2020-03-12 08:48] LABS: BUN/Creatinine Ratio 15
--- NOTE | 2020-03-12 10:09 | Discharge Summary ---
Providers - Providers Date of Admission: 03/10/20 17:00 Date of discharge: 03/12/20 Attending physician: MARLEE KATZ 03/11/20 00:32 Consult to Physician [CONS] Routine Comment: Consulting Provider: KB WILSON Physician Instructions: Reason For Exam: CVA vs Tia 03/11/20 00:36 Occupational Therapy Evaluate and Treat [CONS] Routine Comment: Reason For Exam: Neuro deficits Physical Therapy Evaluation and Treat [CONS] Routine Comment: Reason For Exam: Neuro deficits Primary care physician: SHILA COELHO Hospitalization Condition: Serious Hospital course: 64-year-old female with history of hypertension comes in for dizziness generalized weakness and blurry vision that started around 10 AM this morning. Also associated with nausea and vomiting. Patient denies any headache fever chest pain shortness of breath. Patient denies any slurred speech or numbness or paresthesias. No fever. No recent exposure to coronavirus. No history of stroke that she is aware of. She does not take any routine blood thinners. She did have some nausea and vomiting 2 earlier but no headache or chest pain. She had she came to the emergency department with a complaint of blurry vision and dizziness. her blood pressure is significantly elevated in the 180s systolic range. In the ER, stroke code was called and patient was seen by neurologist who suggested an MRI of the brain. Patient's CT head was negative for any acute stroke. CTA head and neck also showed no significant stenosis. As per neurology, etiology of dizziness is likely disease of the vestibular system. Advised getting MRI brain to rule out posterior stroke. Her MRI brain is negative for any infarct. She will be discharged on meclizine as recommended by neurology. She agrees with plan. Disposition: DC- TO HOME OR SELFCARE - Discharge Diagnoses (1) Acute peripheral vestibulopathy Status: Acute (2) Hypertension Status: Chronic Qualifiers: Hypertension type: essential hypertension Qualified Code(s): I10 - Essential (primary) hypertension Core Measure Documentation - Palliative Care Palliative Care/ Comfort Measures: Not Applicable - Core Measures Any of the following diagnoses?: none Exam - Physical Exam Narrative exam: VITAL SIGNS: Reviewed. GENERAL: Awake HEAD: No signs of head trauma. EYES: Pupils are equal. Extraocular motions intact. MOUTH: Oropharynx is normal. NECK: No adenopathy, no JVD. CHEST: Chest with diminished breath sounds bilaterally. No wheezes, rales, or rhonchi. CARDIAC: normal S1 and S2, without murmurs, gallops, or rubs. ABDOMEN: Soft, non tender and non distended. No rebound or guarding, and no masses palpated. Bowel Sounds normal. MUSCULOSKELETAL: No edema NEUROLOGIC EXAM: Alert and oriented x3. No focal neurologic deficits SKIN: No obvious lesions - Constitutional Vitals: Temp Pulse Resp BP Pulse Ox 97.7 F 81 18 151/79 95 03/12/20 08:23 03/12/20 08:23 03/12/20 08:23 03/12/20 08:23 03/12/20 08:23 Plan Additional Instructions: Continue mecilizine as follows - meclizine 6.25 mg 3 times a day for 3 weeks, twice a day for 2 weeks, once a day for 1 week and then stop it. Follow up with your primary medical doctor in 1-2 weeks Follow up with: SHILA COELHO MD [Primary Care Provider] - 7 Days Prescriptions: amLODIPine 10 mg PO DAILY #30 tab Meclizine [Antivert] 6.25 mg PO TID #60 tablet Metoprolol [Lopressor TAB] 25 mg PO BID #60 tablet
[2020-03-12] MEDS: predniSONE 20 MG TAB PO SCH (10:55)
[2020-03-12] MEDS: FAMOTIDINE 20 MG TAB PO SCH (10:55)
[2020-03-12] MEDS: ASPIRIN 325 MG TAB PO SCH (10:55)
[2020-03-12] MEDS: HEPARIN 5,000 UNIT/1 ML VIAL SUB-Q SCH (10:56)
[2020-03-12] MEDS ORDERED: FLU VACC QUAD 2020-2021 (6 months +)/PF 60 0.5 ML SYRINGE IM ONE (11:00)
[2020-03-12] MEDS: MECLIZINE 12.5 MG TAB PO SCH ×2 (11:09→14:08)
[2020-03-12 12:11] VITALS: BP 137/72
[2020-03-12] MEDS: ACETAMINOPHEN 325 MG TAB PO PRN (14:07)
== END 2020-03-12 20:05 | disposition home or self-care (01) ==
LOC: ED 11:29 → 4A 17:00
PROVIDERS: ADMIT Internal Medicine; ATTEND Internal Medicine
DX: I63.9 Cerebral infarction, unspecified (principal); I63.349 Cerebral infarction due to thrombosis of unspecified cerebellar artery; I10 Essential (primary) hypertension; H53.8 Other visual disturbances; J45.909 Unspecified asthma, uncomplicated; H81.20 Vestibular neuronitis, unspecified ear; R53.1 Weakness; R29.702 NIHSS score 2; Z98.890 Other specified postprocedural states; Z98.891 History of uterine scar from previous surgery; Z79.82 Long term (current) use of aspirin; Z79.899 Other long term (current) drug therapy
CPT/HCPCS: 36415; 70450; 70496; 70498; 70551; 80053; 80061; 81001; 82550; 83036; 83735; 84443; 84484; 85025; 93005; 93306; 93880; 96361; 96372; 96374; 97161; 97165; 99285; A9270; G0378; J1644; J2405; J7030; J7512; Q9967